=== PATIENT | female | born 1950 | race Caucasian/White ===

== ENCOUNTER 2024-05-25 21:43 | Emergency (ER) | payer BC, OTHER ==
[~2024-05-25] VITALS: Ht 162.6 cm; Wt 83.3 kg
[2024-05-25 21:52] VITALS: BP 146/73; PULSE 76; O2SAT 96
[2024-05-25 22:37] VITALS: RESP 16
[2024-05-25] MEDS: HYDROcodone/acetaminophen 5mg/325mg tablet PO ONE (22:37)
[2024-05-25] MEDS ORDERED: DOXY-460 PO (23:11)
[2024-05-25 23:15] VITALS: TEMP 98.4
[2024-05-25] MEDS: DOXYCYCLINE 100MG CAPSULE PO STA (23:18)
== END 2024-05-25 23:24 | disposition home or self-care (01) ==
LOC: ER 21:44
DX: L02.415 Cutaneous abscess of right lower limb (principal); E78.00 Pure hypercholesterolemia, unspecified; J45.909 Unspecified asthma, uncomplicated; F32.A Depression, unspecified; Z88.2 Allergy status to sulfonamides; Z98.51 Tubal ligation status
CPT/HCPCS: 10060; 99283; A6266; A6258; A6449